=== PATIENT | female | born 1955 ===

== ENCOUNTER 2016-05-16 10:10 | Day surgery (SDC) | payer OTHER ==
[2016-05-16 11:03] VITALS: BMI 27.6
[2016-05-16] MEDS ORDERED: Propofol 10 mg/ml Inj (20 ML) ONE (12:45)
[2016-05-16] MEDS ORDERED: Dextrose 5%/Lactated Ringer's 500 ML IV ONE (12:54)
[2016-05-16] MEDS ORDERED: Lactated Ringer's 1,000 ML IV SCH (13:00)
[2016-05-16 16:16] VITALS: O2SAT 100
[2016-05-16 16:21] VITALS: BP 147/92; PULSE 62; RESP 12
[2016-05-16 16:22] VITALS: TEMP 97.2
== END 2016-05-16 14:20 | disposition home or self-care (01) ==
LOC: C.ENDO 10:10
PROVIDERS: ATTEND Internal Medicine Gastroenterology
DX: K29.70 Gastritis, unspecified, without bleeding (principal); K44.9 Diaphragmatic hernia without obstruction or gangrene; R13.10 Dysphagia, unspecified
CPT/HCPCS: 43239; 88305; 88312; 88342; J2704; J7120

== ENCOUNTER 2016-09-22 10:37 | Emergency (ER) | payer OTHER ==
[2016-09-22 10:37] VITALS: BMI 27.6
[2016-09-22 10:40] VITALS: RESP 16; TEMP 97.7; O2SAT 98
--- NOTE | 2016-09-22 10:44 | C.PDOC ---
History Of Present Illness 61 yr old female presents to the ER with left rib pain for the past 1 week. Patient is s/p trip and fall 1 week ago, fell onto the edge of the tub. Reports "feel something cracking". Patient states the pain is local and worse with movement and has been doing well with ibuprofen but the pain is now more worse since morning. Patient denies chest pain, SOB, back pain, abdominal pain, weakness or numbness. L RIB PAIN X 1 WEEK. SP TRIP AND FALL 1 WEEK AGO FELL ONTO EDGE OF TUB. "FEEL SOMETHING CRACKING". LOCAL WORSE W MOVEMENT. HAS BEEN DOING WELL W IBUPROFEN BUT PAIN NOW MORE WORSE SINCE THIS MORNING. NO SOB. NO OTHER ASSOC SX EXAM MOD DIST NONTOXIC HEENT ATRAUM CHEST WALL +TEND ?CREP MID POST. CTA B/L NO W/R/R LIMITED DUE OT PAIN ABD ATRAUM SOFT NT ND NO R/G SKIN INTACT - HPI Time Seen by Provider: 09/22/16 10:43 Chief Complaint (Nursing): Rib Injury History Per: Patient History/Exam Limitations: no limitations Onset/Duration Of Symptoms: Days (1 week) Past Medical History Reviewed: Historical Data, Nursing Documentation, Vital Signs Vital Signs: Last Vital Signs Temp 97.7 F 09/22/16 10:39 Pulse 91 H 09/22/16 10:39 Resp 16 09/22/16 10:39 BP 163/100 H 09/22/16 10:39 Pulse Ox 98 09/22/16 11:18 - Medical History PMH: HTN, Osteoporosis Surgical History: Cholecystectomy Family History: States: No Known Family Hx - Social History Hx Alcohol Use: No Hx Substance Use: No Review Of Systems Except As Marked, All Systems Reviewed And Found Negative. Cardiovascular: Negative for: Chest Pain Respiratory: Negative for: Shortness of Breath Gastrointestinal: Negative for: Abdominal Pain Musculoskeletal: Positive for: Other ((+) Left rib pain). Negative for: Back Pain Neurological: Negative for: Weakness, Numbness Physical Exam - Physical Exam Appears: Non-toxic, In Acute Distress (Moderate ) Skin: Warm, Dry, No Rash Head: Atraumatic, Normacephalic Eye(s): bilateral: Normal Inspection, PERRL, EOMI Oral Mucosa: Moist Chest: Symmetrical, Tenderness (Chest wall tenderness. Possible crepitus mid posterior. ) Cardiovascular: Rhythm Regular, No Murmur Respiratory: Normal Breath Sounds, No Rales, No Rhonchi, No Stridor, No Wheezing Gastrointestinal/Abdominal: Normal Exam, Soft, No Tenderness, No Guarding, No Rebound Back: Normal Inspection, No CVA Tenderness Extremity: Normal ROM, No Swelling Neurological/Psych: Oriented x3, Normal Speech, Normal Motor ED Course And Treatment O2 Sat by Pulse Oximetry: 98 (RA ) Pulse Ox Interpretation: Normal - Other Rad X-Ray - Ribs & Chest X-Ray: Interpreted by Me (?FX LOWER RIB. NON DISP NO PTX), Viewed By Me Reevaluation Time: 11:53 Reassessment Condition: Improved (PT NOW STATES NOT ALLOWED TO TAKE TYLENOL "BC OF MY LIVER". ADVISED CONTINUE MOTRIN, LIDODERM TOLERATED ICE TO AFFECTED AREA.) Medical Decision Making Medical Decision Making: PLAN: * X-Ray - Ribs & Chest * Lidoderm TD * Zofran PO * Morphine IM Disposition Counseled Patient/Family Regarding: Studies Performed, Diagnosis, Need For Followup, Rx Given - Disposition Referrals: YOUR,PMD [Other] Disposition: HOME/ ROUTINE Disposition Time: 11:54 Condition: IMPROVED Additional Instructions: REMOVE PATCH 12 HOURS AFTER INITIAL APPLICATION. Prescriptions: Lidocaine 5% [Lidoderm] 1 ea TD PRN PRN #10 patch PRN Reason: Pain, Moderate (4-7) Instructions: Rib Fracture (ED), Rib Contusion (ED) Forms: [employer] (Honduran) Print Language: JAPANESE - Clinical Impression Clinical Impression: Rib pain, Rib fracture - Scribe Statement The provider has reviewed the documentation as recorded by the Rosa Garcia Provider Attestation: All medical record entries made by the Rosa were at my direction and personally dictated by me. I have reviewed the chart and agree that the record accurately reflects my personal performance of the history, physical exam, medical decision making, and the department course for this patient. I have also personally directed, reviewed, and agree with the discharge instructions and disposition.
[2016-09-22] MEDS ORDERED: Lidocaine 5% Patch TD STA (11:04)
[2016-09-22] MEDS ORDERED: Morphine 4 MG/ML VIAL ONE (11:14)
[2016-09-22] MEDS ORDERED: Lidocaine 5% Patch TD ONE (11:18)
[2016-09-22 12:36] VITALS: BP 148/85; PULSE 78
--- NOTE | 2016-09-22 16:27 | RAD ---
Chest and left ribs four views History: Trauma. Comparison: None available. Findings: Biapical pleural thickening with upper lobe granulomatous changes. Diffuse increased interstitial lung markings. Patchy left basilar airspace opacity. Cardiomegaly. Degenerative changes in the spine and shoulders. No evidence of gross rib deformity. If pain persists, consider further evaluation with chest CT. Surgical clips in the right upper abdomen. Impression: Biapical pleural thickening with upper lobe granulomatous changes. Diffuse increased interstitial lung markings. Patchy left basilar airspace opacity. Cardiomegaly. Degenerative changes in the spine and shoulders. No evidence of gross rib deformity. If pain persists, consider further evaluation with chest CT. Surgical clips in the right upper abdomen.
== END 2016-09-22 12:35 | disposition home or self-care (01) ==
LOC: C.ER 10:37
DX: S22.32XA Fracture of one rib, left side, initial encounter for closed fracture (principal); W01.0XXA Fall on same level from slipping, tripping and stumbling without subsequent striking against object, initial encounter; R07.81 Pleurodynia
CPT/HCPCS: 71101; 96372; 99283; J2270